=== PATIENT | female | born 1960 | race Caucasian/White ===

== ENCOUNTER 2021-10-20 11:02 | Inpatient (IN) | payer MEDICARE, OTHER ==
[~2021-10-20] VITALS: Ht 165.1 cm; Wt 72.6 kg
--- NOTE | 2021-10-20 11:20 | NUR ---
Dr damian at the bedside for MSE.
[2021-10-20] MEDS ORDERED: RISP2TAB85 PO (11:43)
[2021-10-20] MEDS ORDERED: NA P133E RC (11:43)
[2021-10-20] MEDS ORDERED: MULT-213 PO (11:43)
[2021-10-20] MEDS ORDERED: DIVA-78 PO (11:43)
[2021-10-20] MEDS ORDERED: BISA10SU61 RC (11:43)
[2021-10-20] MEDS ORDERED: DICLOFENAC OINTMENT TP (11:43)
[2021-10-20] MEDS ORDERED: OXYB5TAB16 PO (11:43)
[2021-10-20] MEDS ORDERED: MAGN400O6 PO (11:43)
[2021-10-20] MEDS ORDERED: ATOR40TA PO (11:43)
[2021-10-20] MEDS ORDERED: BENZ1TAB7 PO (11:43)
[2021-10-20] MEDS ORDERED: FURO40TA5 PO (11:43)
[2021-10-20 11:46] LABS: MEAN CORPUSCULAR HEMOGLOBIN 33.3 uug (23.8-33.4); MEAN CORPUSCULAR VOLUME 98.9 fL (73.0-96.2); PLATELET COUNT (AUTO) 154 K/uL (152-348)
--- NOTE | 2021-10-20 11:50 | NUR ---
Pt is drowsy but arousable, able to make needs known. Unsteady gait, denies pain.
[2021-10-20 11:52] LABS: CARBON DIOXIDE 27 mmol/L (21-32); CHLORIDE 108 mmol/L (98-107); CREATININE 0.8 mg/dL (0.6-1.3); GLUCOSE 80 mg/dL (74-106); POTASSIUM 3.8 mmol/L (3.5-5.1); UREA NITROGEN, BLOOD 19 mg/dL (7-18)
[2021-10-20 11:59] LABS: ACETAMINOPHEN < 2.0 ug/mL (10-30); ALANINE AMINOTRANSFERASE 42 U/L (16-63); ALKALINE PHOSPHATASE 119 U/L (50-136); ASPARTATE AMINOTRANSFERASE 34 U/L (15-37); BILIRUBIN,DIRECT 0.2 mg/dL (0.0-0.2); BILIRUBIN,TOTAL 0.6 mg/dL (0.2-1.0); TOTAL PROTEIN, SERUM 6.4 g/dL (6.4-8.2)
[2021-10-20 12:05] LABS: ETHANOL < 3 MG/DL (0-0)
[2021-10-20 12:34] LABS: THYROID STIMULATING HORMONE 1.286 mIU/mL (0.358-3.740)
--- NOTE | 2021-10-20 13:50 | NUR ---
Attrempted twice to collect urine, pt unable to stay awake long enough to give urine and is incontinant.
--- NOTE | 2021-10-20 15:55 | NUR ---
Pt is medically cleared by Dr Velazco, May adam SPEECH/LANGUAGE THERAPIST from PET notified for psych evaluation.
--- NOTE | 2021-10-20 16:49 | NUR ---
Patient is resting comfortably in bed with eyes closed, NAD noted.
--- NOTE | 2021-10-20 17:29 | NUR ---
Kristopher GARGW at the bedside for MSE.
[2021-10-20] MEDS ORDERED: BISACODYL 10 MG SUPP.RECT RC PRN (19:45)
[2021-10-20 20:00] VITALS: BP 127/57
[2021-10-20] MEDS ORDERED: MAGNESIUM HYDROXIDE 30 ML LIQUID UDC PO PRN (20:00)
[2021-10-20] MEDS ORDERED: ACETAMINOPHEN 325 MG TABLET PO PRN (20:00)
[2021-10-20] MEDS ORDERED: LORAZEPAM 1 MG TABLET PO PRN (20:00)
[2021-10-20] MEDS ORDERED: BLOOD SUGAR DIAGNOSTIC 1 EACH STRIP VI ONE (20:00)
[2021-10-20] MEDS ORDERED: TEMAZEPAM 7.5 MG CAPSULE PO PRN (20:00)
[2021-10-20] MEDS ORDERED: MAG HYDROX/AL HYDROX/SIMETH 30 ML LIQUID UDC PO PRN (20:00)
[2021-10-20] MEDS: ATORVASTATIN 40 MG TABLET PO SCH (20:57)
--- NOTE | 2021-10-21 03:32 | NUR ---
GPS/NSG Admit Note: Female 60 yr old female admitted on a 5150 for Grave Disability. Patient arrived from [facility] originally according to medical record and intake for stating she was suicidal and homicidal, upon arrival clinician determined she was gravely disabled because she is unable to care for self. Patient denied suicide ideation or intent in the emergency department. Upon arrival patient was transported via gurney and arrived to mental health unit asleep and nurse was unable to conduct admission interview. There is no family listed to contact. Patient has a POLST with full code status with a history of Schizo-affective D/O, Insomnia, Anxiety D/O, Cannabis abuse, poly-substance abuse, muscle weakness, hypertension, COPD, Coronary Artery Disease, Congestive Heart Failure, and is a smoker. Psychiatrist notified, orders received, physician aware of admission. Patient Rights Handbook provided. Patient plan of care initiated with observation Q15 minutes to ensure a safe environment.
[2021-10-21 07:30] VITALS: BP 98/43
--- NOTE | 2021-10-21 08:07 | NUR ---
TOMMY Initial Discharge Note Pt currently resides at [facility] located at [address] [place] [address] ([phone]). Pt does not have any family members at this time. TOMMY contacted [facility] and spoke with [facility] telecom coordinator who stated pt is welcome back upon discharge. TOMMY will coordinate with pt, treatment team, and MD to ensure a safe and proper discharge.
--- NOTE | 2021-10-21 08:08 | NUR ---
SW Admit Source Note Pt currently resides at [facility] located at [address] [place] [address] ([phone]). Pt does not have any family members at this time. TOMMY contacted [facility] and spoke with [facility] transplant coordinator who stated pt is welcome back upon discharge. TOMMY will coordinate with pt, treatment team, and MD to ensure a safe and proper discharge.
[2021-10-21] MEDS: MULTIVIT, IRON, MIN NO. 8, FA TABLET PO SCH (08:19)
[2021-10-21] MEDS: OXYBUTYNIN CHLORIDE 5 MG TABLET PO SCH ×2 (08:19→16:33)
[2021-10-21 08:24] LABS: HEMATOCRIT 48.1 % (31.2-41.9); MEAN CORPUSCULAR VOLUME 99.6 fL (75.5-95.3); PLATELET COUNT (AUTO) 170 K/uL (179-408)
[2021-10-21 08:37] LABS: MAGNESIUM 2.1 mg/dL (1.8-2.4)
[2021-10-21 08:48] LABS: BILIRUBIN,TOTAL 0.6 mg/dL (0.2-1.0); CREATININE 0.8 mg/dL (0.6-1.3); POTASSIUM 4.4 mmol/L (3.5-5.1); TOTAL PROTEIN, SERUM 7.1 g/dL (6.4-8.2)
[2021-10-21] MEDS ORDERED: DIVALPROEX 500 MG TABLET.DR PO SCH (09:00)
[2021-10-21] MEDS ORDERED: Medication Not On Formulary EA (Multivitamins W-Minerals (Multivitamin With Minerals) 1 PO SCH (09:00)
--- NOTE | 2021-10-21 09:46 | NUR ---
Firearms Report: Artificial Flower Maker completed and submitted a [employer] firearms report for 5150 grave disability certifications. A copy of report has been placed in patient chart.
[2021-10-21] MEDS: DIVALPROEX 500 MG TABLET.DR PO SCH ×2 (13:45→16:33)
[2021-10-21] MEDS: risperiDONE 1 MG TABLET PO SCH ×2 (14:40→16:33)
[2021-10-21] MEDS: FUROSEMIDE 40 MG TABLET PO SCH (14:43)
[2021-10-21 15:42] VITALS: BP 91/46
[2021-10-21 20:05] VITALS: BP 90/47
[2021-10-21] MEDS: LORAZEPAM 1 MG TABLET PO PRN (20:53)
[2021-10-21] MEDS: ATORVASTATIN 40 MG TABLET PO SCH (20:53)
[2021-10-21] MEDS: TEMAZEPAM 7.5 MG CAPSULE PO PRN (21:37)
[2021-10-22 07:30] VITALS: BP 92/58
[2021-10-22] MEDS: MULTIVIT, IRON, MIN NO. 8, FA TABLET PO SCH (08:21)
[2021-10-22] MEDS: OXYBUTYNIN CHLORIDE 5 MG TABLET PO SCH ×2 (08:21→16:31)
[2021-10-22] MEDS: risperiDONE 1 MG TABLET PO SCH (08:21)
[2021-10-22] MEDS: DIVALPROEX 500 MG TABLET.DR PO SCH ×4 (08:21→18:44)
[2021-10-22] MEDS: risperiDONE 0.5 MG TABLET PO SCH ×3 (12:19→18:46)
[2021-10-22] MEDS: FUROSEMIDE 40 MG TABLET PO SCH (12:20)
--- NOTE | 2021-10-22 14:50 | NUR ---
Gps/Forms Designer- Stayed in the activity room watching TV , interacts when engaged , occ. yelling and screaming noted , denies yelling when asked . No interactions with her roommate. Had been in and out of her room, making her simple needs known.
[2021-10-22 16:00] VITALS: BP 94/41
--- NOTE | 2021-10-22 16:32 | NUR ---
Gps/Manager Compliance- Refused to take routine pm meds. patient yelling at the staff, discouraged from doing so, calling staff names. Claimed she's going to bring her Wool Supplier , and staff here are not Professional /pt.
[2021-10-22 20:00] VITALS: BP 102/49
[2021-10-22] MEDS: LORAZEPAM 1 MG TABLET PO PRN (20:04)
[2021-10-22] MEDS: ATORVASTATIN 40 MG TABLET PO SCH (20:04)
--- NOTE | 2021-10-23 06:43 | NUR ---
The patient was quiet during the shift. Total sleep hours were 6.45. Safety Stratiges remain in place at this time. Continuing to monitor for behavior escalation or any bizarre behavior.
[2021-10-23 08:32] VITALS: BP 96/49
[2021-10-23] MEDS: FUROSEMIDE 40 MG TABLET PO SCH (08:32)
[2021-10-23] MEDS: risperiDONE 0.5 MG TABLET PO SCH (08:33)
[2021-10-23] MEDS: OXYBUTYNIN CHLORIDE 5 MG TABLET PO SCH ×2 (08:33→17:30)
[2021-10-23] MEDS: MULTIVIT, IRON, MIN NO. 8, FA TABLET PO SCH (08:33)
[2021-10-23] MEDS: DIVALPROEX 500 MG TABLET.DR PO SCH ×3 (08:33→17:28)
[2021-10-23] MEDS: risperiDONE 2 MG TABLET PO SCH ×2 (12:47→17:28)
[2021-10-23 15:57] VITALS: BP 100/47
--- NOTE | 2021-10-23 16:04 | NUR ---
Gps/Support Group Manager- Cooperative , stays in her room most of the day, kept asking about her discharge plan . Had been compliant with her routine meds. Took naps this pm.
--- NOTE | 2021-10-23 16:17 | NUR ---
Gps/Lead Quality Technician- Patient refused to have EKG done, came to explained to patient, claimed " nothing wrong with my heart, even there is something wrong i dont want it"
[2021-10-23 20:09] VITALS: BP 101/49
[2021-10-23] MEDS: ATORVASTATIN 40 MG TABLET PO SCH (23:14)
[2021-10-24 07:30] VITALS: BP 96/53
[2021-10-24] MEDS: DIVALPROEX 500 MG TABLET.DR PO SCH ×2 (08:29→13:49)
[2021-10-24] MEDS: MULTIVIT, IRON, MIN NO. 8, FA TABLET PO SCH (08:29)
[2021-10-24] MEDS: risperiDONE 2 MG TABLET PO SCH ×3 (08:29→20:27)
[2021-10-24] MEDS: FUROSEMIDE 40 MG TABLET PO SCH (08:29)
[2021-10-24] MEDS: OXYBUTYNIN CHLORIDE 5 MG TABLET PO SCH ×2 (08:29→17:00)
[2021-10-24] MEDS ORDERED: FUROSEMIDE 40 MG TABLET PO SCH (09:00)
[2021-10-24 15:11] VITALS: BP 102/61
[2021-10-24] MEDS ORDERED: risperiDONE 2 MG TABLET PO SCH (17:00)
--- NOTE | 2021-10-24 17:28 | NUR ---
patient became angry and agitated when routine medication offered, she state that my never explained to me why i am here,and no one explained 14 days hold for me.patient refused medication ,patient remains confused and paranoid unable to care for herself.
[2021-10-24 19:58] VITALS: BP 101/56
[2021-10-24] MEDS: ATORVASTATIN 40 MG TABLET PO SCH (20:27)
[2021-10-24] MEDS: DIVALPROEX 250 MG TABLET.DR PO SCH (20:27)
--- NOTE | 2021-10-24 23:00 | NUR ---
GPS ADMISSION NOTES: Female 74 yr old female admitted on a 5150 for Grave Disability. Patient arrived from [facility] originally according to medical record and intake for stating she was non compliant with care and agitated, upon arrival clinician determined she was gravely disabled because she is unable to care for self and has poor judgment, insight and impulse control. Patient is uncooperative. Patient denied suicide ideation or intent in the emergency department. Patient received on joseph chair, quiet and calm. Patient has a history of psychosis, dementia, HTN, HLD, CVA, CAD with previous NStemi, pneumonia, constipation, GERD schizophrenia, depression and chronic anxiety. Face to face evaluation completed. Pt uncooperative for skin assessment. 2100 Pt started to be agitated and restless, does not want to go to her room. Pt states, "there is a ghost in the room." Ativan given as ordered. Advisement and Patient Rights Handbook provided to patient. Patient plan of care initiated with observation Q15 minutes to ensure a safe environment. @2145 Temazepam given for sleep as ordered to help with sleep. @2230 Ativan and Temazepam effective. Call lights within reach. Safety measures initiated. Addendum: 10/25/21 at 0046 by SARAH COLLADO RN wrong patient.
[2021-10-25 07:30] VITALS: BP 95/49
[2021-10-25] MEDS: DIVALPROEX 500 MG TABLET.DR PO SCH ×2 (08:00→12:34)
[2021-10-25] MEDS: OXYBUTYNIN CHLORIDE 5 MG TABLET PO SCH ×2 (09:00→16:48)
[2021-10-25] MEDS: risperiDONE 2 MG TABLET PO SCH ×3 (09:00→20:04)
[2021-10-25] MEDS: MULTIVIT, IRON, MIN NO. 8, FA TABLET PO SCH (09:00)
[2021-10-25] MEDS: FUROSEMIDE 20 MG TABLET PO SCH (09:00)
--- NOTE | 2021-10-25 10:12 | NUR ---
GPS: Nursing Notes: Chemical Restraint: Patient is awake, paranoid, refusing medications, violent outburst without provocation, threatening the psychiatrist, disrupting the unit by shouting profanities toward peers, posturing toward the psychiatrist, poor anger management, constantly screaming, setting limits, but unable to be redirected, restless behavior, Dr. Garcia ordered: Zyprexa 10mg IM STAT for severe agitation, R=18, IM medication given at this time, continue to monitor for safety, continue with treatment plan.
[2021-10-25] MEDS ORDERED: OLANZAPINE 10 MG VIAL IM ONE (10:15)
--- NOTE | 2021-10-25 10:42 | NUR ---
GPS: Nursing Notes: Reassessment of Chemical Restraint: patient is awake and responding to his name, continue to refuse her PO medications, stated "It is my right to refuse..", patient became calm, isolative in her room, R=18, continue to monitor for safety, IM medication was effective, continue with treatment plan.
[2021-10-25] MEDS ORDERED: MISCELLANEOUS MED XX PRN (14:00)
[2021-10-25 15:06] VITALS: BP 107/58
--- NOTE | 2021-10-25 17:03 | NUR ---
GPS: Nursing Notes: Thought Disorder: Patient is awake and responding to her name, episodes of shouting in her room, stated "I was talking to God.. I am fine.. Thank you..", continue to refuse her medications, continue to state that is her right as patient, "I am going to court, so I can get released..", needs prompting to participate in therapeutic groups, gets easily irritable when redirected, unable to formulate a viable plan for self care, continue with treatment plan.
[2021-10-25 20:00] VITALS: BP 109/65
[2021-10-25] MEDS: DIVALPROEX 250 MG TABLET.DR PO SCH (20:03)
[2021-10-25] MEDS: ATORVASTATIN 40 MG TABLET PO SCH (20:04)
[2021-10-26 07:30] VITALS: BP 102/44
[2021-10-26] MEDS: OXYBUTYNIN CHLORIDE 5 MG TABLET PO SCH ×2 (08:47→20:00)
[2021-10-26] MEDS: risperiDONE 2 MG TABLET PO SCH ×3 (08:47→21:16)
[2021-10-26] MEDS: FUROSEMIDE 20 MG TABLET PO SCH (08:47)
[2021-10-26] MEDS: DIVALPROEX 500 MG TABLET.DR PO SCH ×2 (08:47→13:23)
[2021-10-26] MEDS: MULTIVIT, IRON, MIN NO. 8, FA TABLET PO SCH (08:48)
--- NOTE | 2021-10-26 10:03 | NUR ---
GPS: PT RECEIVED AWAKE ON BED, DENIES ANY PAIN OR DISCOMFORT. PT TAKE ALL THE MEDS EXCEPT LASIX AND MULTIVITAMINS. EXPLAINED THE RISK AND BENEFITS OF MEDS. PT SEEMS SUSPICIOUS AND PARANOID WHEN IT COMES TO MEDICATION. NEEDY AT TIMES. DENIES SUICIDAL IDEATION.
--- NOTE | 2021-10-26 10:25 | NUR ---
PT NOTED WITH OUTBURST SCREAMING AND YELLING BEHAVIOR. REDIRECTED PT. PT WITHDRAWN ISOLATIVE STAYING IN HER ROOM. ENCOURAGED TO PARTICIPATE WITH GROUP THERAPY.
--- NOTE | 2021-10-26 15:34 | NUR ---
GPS: PT ATTENDED COURT HEARING TODAY FOR 14 DAY HOLD WITH PROBABLE CAUSE OF GRAVE DISABILITY.
[2021-10-26 16:00] VITALS: BP 100/56
[2021-10-26 20:00] VITALS: BP 103/53
--- NOTE | 2021-10-26 20:07 | NUR ---
UNABLE TO GIVE 1700 MEDS DUE TO ACCESS PROBLEM WITH PYXIES. [facility]URSES WILL TRY TO GET IT AVAILABLE FOR PT. LEWIS MADE AWARE.
[2021-10-26] MEDS: DIVALPROEX 250 MG TABLET.DR PO SCH (21:15)
[2021-10-26] MEDS: ATORVASTATIN 40 MG TABLET PO SCH (21:16)
--- NOTE | 2021-10-27 05:54 | NUR ---
Received to care, lying in bed, isolative, but pleasant upon approach. Selective with her medications. Took only 1MG out of 1.5 MG of her Risperdal, and only 250 MG out of a 750 MG dose. She slept all night. Continues to sleep. No distress noted.
[2021-10-27 07:30] VITALS: BP_SYST 107; BP_SYST 95; BP_DIAS 47; BP_DIAS 65
[2021-10-27] MEDS: FUROSEMIDE 20 MG TABLET PO SCH (09:00)
[2021-10-27] MEDS: MULTIVIT, IRON, MIN NO. 8, FA TABLET PO SCH (09:00)
[2021-10-27] MEDS: DIVALPROEX 500 MG TABLET.DR PO SCH ×2 (09:32→13:20)
[2021-10-27] MEDS: OXYBUTYNIN CHLORIDE 5 MG TABLET PO SCH ×2 (09:34→17:00)
[2021-10-27] MEDS: risperiDONE 2 MG TABLET PO SCH ×3 (09:44→21:14)
--- NOTE | 2021-10-27 15:54 | NUR ---
Gps/Customer Consulting Manager- Attends her group therapy, interacts when engaged, compliant most of her routine meds, reviewed with patient one by one, will not take her MVI , claimed she does not needs any vitamin . Admits to hearing voices, claimed they kept talking to her out loud , but will not specify what the voice are telling her.
[2021-10-27] MEDS: MAGNESIUM HYDROXIDE 30 ML LIQUID UDC PO PRN (16:10)
[2021-10-27 20:00] VITALS: BP 88/53
[2021-10-27] MEDS: DIVALPROEX 250 MG TABLET.DR PO SCH (21:14)
[2021-10-27] MEDS: ATORVASTATIN 40 MG TABLET PO SCH (21:14)
[2021-10-27 22:30] VITALS: BP 100/60
--- NOTE | 2021-10-28 06:05 | NUR ---
Received to care, lying in bed, isolative, but pleasant upon approach. Selective with her medications. Took only 250 MG out of a 750 MG dose. of Depakote. She slept all night. Continues to sleep. No distress noted.
[2021-10-28 07:30] VITALS: BP 110/41
[2021-10-28] MEDS: DIVALPROEX 500 MG TABLET.DR PO SCH ×2 (08:56→12:29)
[2021-10-28] MEDS: FUROSEMIDE 20 MG TABLET PO SCH (09:00)
[2021-10-28] MEDS: risperiDONE 2 MG TABLET PO SCH ×3 (09:00→22:05)
[2021-10-28] MEDS: MULTIVIT, IRON, MIN NO. 8, FA TABLET PO SCH (09:00)
[2021-10-28] MEDS: OXYBUTYNIN CHLORIDE 5 MG TABLET PO SCH ×2 (09:00→17:00)
--- NOTE | 2021-10-28 09:18 | NUR ---
Gps/Hot Baller- Had been compliant with routine Psych .am meds. refused to take MVI ., as weel as her lasix b/p denies any dizziness, adequate fluid intake. Claimed had a good bowel movement yesterday after her laxative. Cooperative with staff , no yelling spells noted at this time .
[2021-10-28 17:26] VITALS: BP 106/64
[2021-10-28 20:19] VITALS: BP 107/52
[2021-10-28] MEDS: DIVALPROEX 250 MG TABLET.DR PO SCH (22:04)
[2021-10-28] MEDS: ATORVASTATIN 40 MG TABLET PO SCH (22:04)
--- NOTE | 2021-10-29 04:26 | NUR ---
Received to care lying in bed, isolative, but appropriate behavior. Compliant with all medications. Slept well all night. No distress noted.
[2021-10-29 08:07] VITALS: BP 93/43
[2021-10-29] MEDS: MAGNESIUM HYDROXIDE 30 ML LIQUID UDC PO PRN (09:05)
[2021-10-29] MEDS: FUROSEMIDE 20 MG TABLET PO SCH (09:05)
[2021-10-29] MEDS: MULTIVIT, IRON, MIN NO. 8, FA TABLET PO SCH (09:06)
[2021-10-29] MEDS: DIVALPROEX 500 MG TABLET.DR PO SCH ×2 (09:06→12:11)
[2021-10-29] MEDS: risperiDONE 2 MG TABLET PO SCH ×3 (09:06→20:10)
[2021-10-29] MEDS: OXYBUTYNIN CHLORIDE 5 MG TABLET PO SCH ×2 (09:07→16:23)
[2021-10-29 16:23] VITALS: BP 109/52
[2021-10-29 20:00] VITALS: BP 96/60
[2021-10-29] MEDS: DIVALPROEX 250 MG TABLET.DR PO SCH (20:09)
[2021-10-29] MEDS: ATORVASTATIN 40 MG TABLET PO SCH (20:09)
--- NOTE | 2021-10-30 06:31 | NUR ---
PATIENT ASLEEP BUT AROUSABLE, ABLE TO SLEEP 8.15, COOPERATIVE WITH MEDS, NO BEHAVIORAL PROBLEM, CONT TO MONITOR.
[2021-10-30 07:46] VITALS: BP 93/47
[2021-10-30] MEDS: DIVALPROEX 500 MG TABLET.DR PO SCH ×2 (10:21→13:00)
[2021-10-30] MEDS: FUROSEMIDE 20 MG TABLET PO SCH (10:21)
[2021-10-30] MEDS: MULTIVIT, IRON, MIN NO. 8, FA TABLET PO SCH (10:22)
[2021-10-30] MEDS: risperiDONE 2 MG TABLET PO SCH ×3 (10:24→20:40)
[2021-10-30] MEDS: OXYBUTYNIN CHLORIDE 5 MG TABLET PO SCH ×2 (10:25→16:54)
[2021-10-30 16:37] VITALS: BP 94/43
--- NOTE | 2021-10-30 18:14 | NUR ---
Sitting in bed eating. No acute distress. Denies pain. Compliant with medications. Needs attended. Kept comfortable.
[2021-10-30 20:12] VITALS: BP 100/41
[2021-10-30] MEDS: ATORVASTATIN 40 MG TABLET PO SCH (20:38)
[2021-10-30] MEDS: DIVALPROEX 250 MG TABLET.DR PO SCH (20:38)
[2021-10-30] MEDS: TEMAZEPAM 7.5 MG CAPSULE PO PRN (21:38)
[2021-10-31 07:50] VITALS: BP 96/47
[2021-10-31] MEDS: FUROSEMIDE 20 MG TABLET PO SCH (08:59)
[2021-10-31] MEDS: OXYBUTYNIN CHLORIDE 5 MG TABLET PO SCH ×2 (08:59→17:18)
[2021-10-31] MEDS: MULTIVIT, IRON, MIN NO. 8, FA TABLET PO SCH (08:59)
[2021-10-31] MEDS: risperiDONE 2 MG TABLET PO SCH ×3 (09:00→20:49)
[2021-10-31] MEDS: DIVALPROEX 500 MG TABLET.DR PO SCH ×2 (09:00→14:36)
[2021-10-31 16:22] VITALS: BP 91/55
--- NOTE | 2021-10-31 16:32 | NUR ---
GPS: Nursing Notes: Thought Disorder: Patient is awake and responding to her name, A/Ox2-3, compliant with her medications, following staff directions, believes that she is getting better, believes that she is leaving today, redirected during shift, unkempt appearance at times, minimal participation in therapeutic groups, continue to monitor for safety, continue with treatment plan.
[2021-10-31 20:00] VITALS: BP 113/65
[2021-10-31] MEDS: DIVALPROEX 250 MG TABLET.DR PO SCH (20:49)
[2021-10-31] MEDS: ATORVASTATIN 40 MG TABLET PO SCH (20:49)
--- NOTE | 2021-11-01 06:17 | NUR ---
Patient slept for 8.00 hours. Covid test done for possible discharge today. No acute distress noted. Calm and cooperative.
[2021-11-01 08:00] VITALS: BP 99/60
[2021-11-01] MEDS: risperiDONE 2 MG TABLET PO SCH (08:30)
[2021-11-01] MEDS: FUROSEMIDE 20 MG TABLET PO SCH (08:30)
[2021-11-01] MEDS: DIVALPROEX 500 MG TABLET.DR PO SCH ×2 (08:30→12:28)
[2021-11-01] MEDS: MULTIVIT, IRON, MIN NO. 8, FA TABLET PO SCH (08:30)
[2021-11-01] MEDS: OXYBUTYNIN CHLORIDE 5 MG TABLET PO SCH (08:34)
--- NOTE | 2021-11-01 09:23 | NUR ---
Discharge Note: Pt will be discharged to [facility] [address] [place] [address] ([phone]) via Ambulance transportation at 11AM. Pt is aware and agreeable with discharge plans. Pts only contact info is [facility]. Pt is alert and oriented x1(name), is unable to plan for self-care at this time; however, is willing to accept care at SNF. Pt denies any suicidal or homicidal ideation. Pt will follow-up at the facility with Psychiatrist, Dr. Garcia and Mems Integration Engineer, Dr. Corral. Pt presents with calm mood and congruent affect. PHARMACY: [facility] ([phone]) [address] [facility] [address].
--- NOTE | 2021-11-01 12:45 | NUR ---
GPS: Nursing Notes: Discharge Notes: Patient is awake and responding to her name, compliant with her medications, cooperative with nursing care, following staff directions, denies SI/HI, denies AH/VH, denies pain or discomfort, denies SOB, discharge to [facility] at [address] [place] [id number] . report given to Michelle RN feed inspection supervisor, transported to facility via ambulance, facility needs to follow up with Dr. Garcia and Dr. Corral at the facility for aftercare, took all her belongings with her.
== END 2021-11-01 12:45 | DRG 885 ==
LOC: EDSEX 11:02 → ER 11:02 → GPS 19:31
PROVIDERS: ADMIT Psychiatry & Neurology Psychosomatic Medicine; ATTEND Internal Medicine
DX: F25.0 Schizoaffective disorder, bipolar type (principal); I11.0 Hypertensive heart disease with heart failure; I50.32 Chronic diastolic (congestive) heart failure; F19.10 Other psychoactive substance abuse, uncomplicated; J44.9 Chronic obstructive pulmonary disease, unspecified; G20 Parkinson's disease; E78.5 Hyperlipidemia, unspecified; F02.80 Dementia in other diseases classified elsewhere, unspecified severity, without behavioral disturbance, psychotic disturbance, mood disturbance, and anxiety; F17.210 Nicotine dependence, cigarettes, uncomplicated; G31.9 Degenerative disease of nervous system, unspecified; F41.9 Anxiety disorder, unspecified; G40.909 Epilepsy, unspecified, not intractable, without status epilepticus; I25.10 Atherosclerotic heart disease of native coronary artery without angina pectoris; G62.9 Polyneuropathy, unspecified; N32.81 Overactive bladder; M24.411 Recurrent dislocation, right shoulder; Z59.01 Sheltered homelessness; Z79.899 Other long term (current) drug therapy; Z82.49 Family history of ischemic heart disease and other diseases of the circulatory system; Z91.19 Patient's noncompliance with other medical treatment and regimen; Z91.81 History of falling; F12.10 Cannabis abuse, uncomplicated; Z91.14 Patient's other noncompliance with medication regimen; Z20.822 Contact with and (suspected) exposure to COVID-19
CPT/HCPCS: 36415; 70450; 71045; 72125; 73030; 80164; 83735; 84100; 84443; 84484; 85025; 93005; 97161; A4663; G0480; J2358; J3490